=== PATIENT | male | born 1965 ===

== ENCOUNTER 2018-07-14 13:21 | Emergency (ER) | payer SELFPAY ==
[2018-07-14 13:45] VITALS: BP 103/66; PULSE 78; RESP 20; TEMP 98.8; O2SAT 99
--- NOTE | 2018-07-14 14:32 | C.PDOC ---
History Of Present Illness 53 year old male presents to ED with complaints of an itching rash x3 days. Patient reports history of sick contact with a family member who had similar rash. Denies any fever, chills, nausea, or vomiting. Time Seen by Provider: 07/14/18 13:51 Chief Complaint (Nursing): Abnormal Skin Integrity History Per: Patient History/Exam Limitations: no limitations Onset/Duration Of Symptoms: Days Current Symptoms Are (Timing): Still Present Past Medical History Reviewed: Historical Data, Nursing Documentation, Vital Signs Vital Signs: Last Vital Signs Temp 98.8 F 07/14/18 13:43 Pulse 78 07/14/18 13:43 Resp 20 07/14/18 13:43 BP 103/66 07/14/18 13:43 Pulse Ox 99 07/14/18 13:43 - Medical History PMH: Hyperlipidemia Family History: States: No Known Family Hx - Social History Hx Alcohol Use: No Hx Substance Use: No - Immunization History Hx Tetanus Toxoid Vaccination: No Hx Influenza Vaccination: No Hx Pneumococcal Vaccination: No Review Of Systems Except As Marked, All Systems Reviewed And Found Negative. Constitutional: Negative for: Fever, Chills Cardiovascular: Negative for: Chest Pain Respiratory: Negative for: Shortness of Breath Gastrointestinal: Negative for: Nausea, Vomiting, Diarrhea Skin: Positive for: Rash (on arms and legs) Neurological: Negative for: Weakness, Numbness Physical Exam - Physical Exam Appears: Non-toxic, No Acute Distress Skin: Warm, Dry, Rash (scattered papular rash on bilateral arms and legs) Head: Atraumatic, Normacephalic Eye(s): bilateral: Normal Inspection Oral Mucosa: Moist Cardiovascular: Rhythm Regular, No Murmur Respiratory: Normal Breath Sounds, No Rales, No Rhonchi, No Wheezing Neurological/Psych: Oriented x3, Normal Speech Gait: Steady ED Course And Treatment O2 Sat by Pulse Oximetry: 99 (RA) Pulse Ox Interpretation: Normal Medical Decision Making Medical Decision Making: Plan: --Benadryl The rash appears to be insect bites. And has sick contact Disposition - Disposition Referrals: [facility] [Outside] Disposition: HOME/ ROUTINE Disposition Time: 14:35 Condition: STABLE Additional Instructions: Montandon podra ser chinches, as que inspeccione todas las kika, sofs y sbanas. Asegrate de sofi todas las sbanas y toallas. Aplicar crema en las zonas afectadas dos veces al da brendan 1 semana. Prescriptions: Triamcinolone 0.1% [Triamcinolone 0.1% Cream] 0.1 gm TP BID PRN #2 tube PRN Reason: Itching / Pruritus Instructions: Skin Rash (DC) Forms: [facility] (Tanzanian) Print Language: HEBREW - Clinical Impression Clinical Impression: Insect bite - PA / [employer] / Resident Statement MD/DO has reviewed & agrees with the documentation as recorded. - Scribe Statement The provider has reviewed the documentation as recorded by the Scribe Nayely Camacho All medical record entries made by the Scribe were at my direction and personally dictated by me. I have reviewed the chart and agree that the record accurately reflects my personal performance of the history, physical exam, medical decision making, and the department course for this patient. I have also personally directed, reviewed, and agree with the discharge instructions and disposition.
== END 2018-07-14 14:46 | disposition home or self-care (01) ==
LOC: C.ER 13:21
DX: S40.862A Insect bite (nonvenomous) of left upper arm, initial encounter (principal); S40.861A Insect bite (nonvenomous) of right upper arm, initial encounter; S80.862A Insect bite (nonvenomous), left lower leg, initial encounter; S80.861A Insect bite (nonvenomous), right lower leg, initial encounter; W57.XXXA Bitten or stung by nonvenomous insect and other nonvenomous arthropods, initial encounter; E78.5 Hyperlipidemia, unspecified